=== PATIENT | female | born 1990 | race Caucasian/White ===

== ENCOUNTER 2020-04-18 17:24 | Emergency (ER) | payer OTHER ==
[2020-04-18 17:38] VITALS: BMI 30.7
[2020-04-18 20:15] LABS: BASO % 0.4 % (0-2.0); EOS % 0.3 % (0-4.5); HEMATOCRIT 38.4 % (32.4-45.2); HEMOGLOBIN 12.7 GM/dL (10.7-15.3); LYMPH % 20.1 % (8-40); MCH 29.6 pg (25.7-33.7); MCHC 33.1 g/dl (32.0-36.0); MEAN CELL VOLUME 89.4 fl (80-96); MEAN PLT VOLUME 8.7 fl (7.5-11.1); MONO % 6.3 % (3.8-10.2); NEUT % 72.9 % (42.8-82.8); PLATELET COUNT 303 K/MM3 (134-434); RDW 14.7 % (11.6-15.6); WHITE BLOOD COUNT 13.3 K/mm3 (4.0-10.0)
[2020-04-18 20:25] LABS: POTASSIUM 3.9 mmol/L (3.5-5.1)
[2020-04-18 20:29] LABS: CALCIUM 9.3 mg/dL (8.5-10.1)
[2020-04-18 20:30] LABS: ALBUMIN 3.7 g/dl (3.4-5.0); BLOOD UREA NITROGEN 9.8 mg/dL (7-18)
[2020-04-18 20:33] LABS: CREATININE 0.6 mg/dL (0.55-1.3)
[2020-04-18 20:35] LABS: BILIRUBIN,TOTAL 0.7 mg/dL (0.2-1); TOT PROT 7.6 g/dl (6.4-8.2)
[2020-04-18 21:27] LABS: EPI CELLS >36 /uL (0-25.1); HYALINE CASTS 124 /uL (0-3.1); PH,URINE 7.5 (5.0-8.0); URINE APPEARANCE TURBID; URINE BILIRUBIN 2+ (NEGATIVE); URINE COLOR RED; URINE GLUCOSE (UA) NEGATIVE (NEGATIVE); URINE KETONE NEGATIVE (NEGATIVE); URINE LEUK ESTERASE 3+ (NEGATIVE); URINE NITRITE POSITIVE (NEGATIVE); URINE PROTEIN 2+ (NEGATIVE); URINE UROBILINOGEN 0.2 mg/dL (0.2-1.0); URINE WBC 226 /uL (0-25.8)
[2020-04-18] MEDS ORDERED: CEPHALEXIN MONOHYDRATE 500 MG CAPSULE (UD) PO ONE (22:25)
[2020-04-18] MEDS ORDERED: CEPHALEXIN MONOHYDRATE 500 MG CAPSULE (UD) ONE (22:39)
[2020-04-18 22:46] VITALS: BP 132/80; PULSE 99; TEMP 98.2
[2020-04-18 23:25] LABS: URINE RBC 40735.7 /uL (0-23.9); YEAST NEGATIVE (NEGATIVE)
== END 2020-04-18 22:47 | disposition home or self-care (01) ==
LOC: JER 17:24
DX: N93.8 Other specified abnormal uterine and vaginal bleeding (principal); N39.0 Urinary tract infection, site not specified
CPT/HCPCS: 36415; 76817-TC; 80053; 81003; 84703; 85025; 87491; 87591; 99284-25

== ENCOUNTER 2021-03-02 07:20 | Emergency (ER) | payer OTHER ==
[2021-03-02 07:40] VITALS: TEMP 98; BMI 30.2
[2021-03-02] MEDS ORDERED: KETOROLAC TROMETHAMINE 30 MG/1 ML VIAL IVPUSH ONE (08:28)
[2021-03-02] MEDS ORDERED: LIDOCAINE HCL 2% JELLY 10 ML CARTRIDGE ONE (08:30)
[2021-03-02] MEDS ORDERED: KETOROLAC TROMETHAMINE 30 MG/1 ML VIAL ONE (08:50)
[2021-03-02 09:01] LABS: BASO % 0.7 % (0-2.0); EOS % 0.4 % (0-4.5); HEMATOCRIT 36.9 % (32.4-45.2); HEMOGLOBIN 11.8 GM/dL (10.7-15.3); LYMPH % 18.5 % (8-40); MCH 26.5 pg (25.7-33.7); MCHC 31.9 g/dl (32.0-36.0); MEAN PLT VOLUME 8.7 fl (7.5-11.1); NEUT % 75.4 % (42.8-82.8); PLATELET COUNT 354 10^3/uL (134-434); RBC 4.45 M/mm3 (3.60-5.2); RDW 15.6 % (11.6-15.6); WHITE BLOOD COUNT 10.3 K/mm3 (4.0-10.0)
[2021-03-02 09:13] LABS: HCG,QUALITATIVE URINE Negative
[2021-03-02 09:14] LABS: EPI CELLS 33 /uL (0-25.1); HYALINE CASTS 1 /uL (0-3.1); URINE APPEARANCE CLEAR; URINE BACTERIA 1472 /uL (0-1359); URINE BILIRUBIN NEGATIVE (NEGATIVE); URINE COLOR YELLOW; URINE GLUCOSE (UA) NEGATIVE (NEGATIVE); URINE KETONE NEGATIVE (NEGATIVE); URINE LEUK ESTERASE TRACE (NEGATIVE); URINE NITRITE NEGATIVE (NEGATIVE); URINE PROTEIN NEGATIVE (NEGATIVE); URINE RBC 6 /uL (0-23.9); URINE UROBILINOGEN 0.2 mg/dL (0.2-1.0); URINE WBC 14 /uL (0-25.8)
[2021-03-02 09:25] LABS: ALBUMIN 3.2 g/dl (3.4-5.0); BLOOD UREA NITROGEN 12.4 mg/dL (7-18); CALCIUM 9.1 mg/dL (8.5-10.1)
[2021-03-02 09:28] LABS: CREATININE 0.7 mg/dL (0.55-1.3)
[2021-03-02 09:29] LABS: BILIRUBIN,TOTAL 0.6 mg/dL (0.2-1)
[2021-03-02 09:30] LABS: TOT PROT 7.3 g/dl (6.4-8.2)
[2021-03-02 10:12] VITALS: BP 115/73; PULSE 69
== END 2021-03-02 10:12 | disposition home or self-care (01) ==
LOC: JER 07:20
PROC: 3E033GC Introduction of Other Therapeutic Substance into Peripheral Vein, Percutaneous Approach (ICD-10-PCS; principal; 2021-03-02)
DX: M54.50 Low back pain, unspecified (principal)
CPT/HCPCS: 36415; 80053; 81003; 83690; 84703; 85025; 87086; 96374; 99284-25